=== PATIENT | male | born 1995 | race Caucasian/White ===

== ENCOUNTER 2018-05-27 18:23 | Emergency (ER) | payer BC ==
[~2018-05-27] VITALS: Wt 64.0 kg
[2018-05-27 18:27] VITALS: BP 126/60; PULSE 58; RESP 19
--- NOTE | 2018-05-27 20:07 | ERD ---
ER Documentation Chief Complaint Chief Complaint bib self, cc: left hand thumb pain s/p injury 2 days ago HPI 22-year-old [id number] male present ED complaining of left thumb pain times 3 days. Patient states that he was punching a boxing bag at the time, and injured his thumb. He came here today because he noticed the pain is not getting any better, and he noticed decreased range of motion of the left thumb. Denies any other injuries. ROS All systems reviewed and are negative except as per history of present illness. Medications Home Meds Active Scripts Ibuprofen* (Motrin*) 600 Mg Tab, 600 MG PO Q6H PRN for PAIN AND OR ELEVATED TEMP, #30 TAB Prov:KATIUSKA ESQUIVEL PROCESS ANALYST 05/27/18 Allergies Allergies: Coded Allergies: No Known Allergy (Unverified , 05/27/18) PMhx/Soc Medical and Surgical Hx: pt denies Medical Hx, pt denies Surgical Hx Hx Alcohol Use: No Hx Substance Use: No Hx Tobacco Use: No Physical Exam Vitals Vital Signs Date Temp Pulse Resp B/P (MAP) Pulse Ox O2 O2 Flow FiO2 Time Delivery Rate 05/27/18 98.2 58 19 126/60 100 18:27 (82) Physical Exam General: Well-developed, well-nourished, conscious and coherent, in no distress Skin: Warm and dry without rash, good texture and turgor Head: Normocephalic without evidence of trauma Chest: Normal AP diameter. Good expansion without retractions. Nontender. Lungs are clear to auscultate bilaterally with good tidal volume Heart: Regular rate and rhythm. No murmur, rub, or gallops heard Extremities: Slight swelling at the MCP joint of the left thumb, with decreased range of motion of the said joint, and point tenderness. No snuffbox tenderness. Peripheral pulses are intact. Sensation intact Neuro: Alert and oriented 4, GCS 15. Procedures/MDM Well-appearing 22-year-old male complaining of left thumb pain after injury 2 days ago. X-ray of the left thumb showed an avulsion fracture at the base of the phalanx. He does not have any snuffbox tenderness, low suspicion for occult scaphoid fracture. The area of injury was immobilized with a metal finger splint. Patient was noted to be comfortable and neurovascularly intact both before and after the immobilization. Patient advised to follow-up with PCP for orthopedic referral. Patient appears well, stable for discharge and outpatient management. Medical decision making shared with patient and family. Education provided to patient and family. Patient and family expressed understanding of the plan. Medications on discharge: Ibuprofen. Follow-up: Primary care provider in 2-3 days or return to ED if worse. Disclaimer: Inadvertent spelling and grammatical errors are likely due to EHR/dictation software use and do not reflect on the overall quality of patient care. Also, please note that the electronic time recorded on this note does not necessarily reflect the actual time of the patient encounter. Departure Diagnosis: Primary Impression: Finger injury Condition: Stable KATIUSKA ESQUIVEL NP May 27, 2018 20:07
[2018-05-27] MEDS ORDERED: IBUP-1542 PO (21:19)
== END 2018-05-27 21:29 | disposition home or self-care (01) ==
LOC: FTE 18:23
DX: S69.92XA Unspecified injury of left wrist, hand and finger(s), initial encounter (principal); R40.2412 Glasgow coma scale score 13-15, at arrival to emergency department; W22.8XXA Striking against or struck by other objects, initial encounter; Y92.9 Unspecified place or not applicable
CPT/HCPCS: 29125; 73140; Z7502

== ENCOUNTER 2018-10-07 20:50 | Emergency (ER) | payer BC ==
[~2018-10-07] VITALS: Ht 170.2 cm; Wt 64.0 kg
[~2018-10-07 20:50] MED LIST: IBUP-1542 PO
[2018-10-07 21:01] VITALS: BP 111/65; PULSE 89; RESP 18; Ht 170.2 cm; Wt 64.0 kg
[2018-10-07] MEDS ORDERED: FLUT9.9S NASAL (21:28)
[2018-10-07] MEDS ORDERED: MUPI22OI2 TOP (21:28)
--- NOTE | 2018-10-07 21:57 | ERD ---
ER Documentation Chief Complaint Chief Complaint C/O "BUMPS" IN NASAL AIRWAY, CAUSING PAIN AND DIFFICULTY BREATHING HPI 23-year-old male presenting with bumps and swelling to his nasal passage x2 months. Patient states is irritating when he breathes. It is not painful and he does not use medications on the area. He denies any drug use or cocaine use. Denies other medical problems. NKDA. Surgical history denies. Social history denies ROS All systems reviewed and are negative except as per history of present illness. Medications Home Meds Active Scripts Mupirocin* (Bactroban*) 2% -22 Gram Oint...g., 1 APPLIC TOP BID for 7 Days, EA Prov:SINDY ANSARI PA-C 10/07/18 Fluticasone Propionate (Flonase Allergy Relief) 9.9 Ml [place].susp, 1 SPRAY NASAL BID, #1 BOTTLE TO EACH NOSTRIL Prov:SINDY ANSARI PA-C 10/07/18 Ibuprofen* (Motrin*) 600 Mg Tab, 600 MG PO Q6H PRN for PAIN AND OR ELEVATED TEMP, #30 TAB Prov:KATIUSKA ESQUIVEL NP 05/27/18 Allergies Allergies: Coded Allergies: No Known Allergy (Unverified , 05/27/18) PMhx/Soc Medical and Surgical Hx: pt denies Medical Hx, pt denies Surgical Hx Hx Alcohol Use: No Hx Substance Use: No Hx Tobacco Use: No Smoking Status: Never smoker FmHx Family History: No diabetes, No coronary disease, No other Physical Exam Vitals Vital Signs Date Temp Pulse Resp B/P (MAP) Pulse Ox O2 O2 Flow FiO2 Time Delivery Rate 10/07/18 98.0 89 18 111/65 98 21:01 (80) Physical Exam GENERAL: The patient is well-appearing, well-nourished, in no acute distress HEENT: Atraumatic. Conjunctivae are pink. Pupils equal, round, and reactive to light. There is no scleral icterus. Tympanic membranes clear bilaterally. Oropharynx clear. Small wound noted within the left nasal passage. Mild swelling noted to the right turbinate. NECK: C-spine is soft and supple. There is no meningismus. There is no cervical lymphadenopathy. CHEST: Clear to auscultation bilaterally. There are no rales, wheezes or rhonchi. HEART: Regular rate and rhythm. No murmurs, clicks, rubs or gallops. Procedures/MDM MDM: 23-year-old male presenting with swelling to his nasal passage. She will be discharged with supportive medications and recommend follow-up with ENT. Patient is told symptoms change or worsen to return immediately to the ER. All questions answered at discharge Departure Diagnosis: Primary Impression: Polyp, nasal Condition: Stable Patient Instructions: Nasal Contusion Referrals: BRANDON ALLISON MD [facility] YOU HAVE RECEIVED A MEDICAL SCREENING EXAM AND THE RESULTS INDICATE THAT YOU DO NOT HAVE A CONDITION THAT REQUIRES URGENT TREATMENT IN THE EMERGENCY DEPARTMENT. FURTHER EVALUATION AND TREATMENT OF YOUR CONDITION CAN WAIT UNTIL YOU ARE SEEN IN YOUR DOCTORS OFFICE WITHIN THE NEXT 1-2 DAYS. IT IS YOUR RESPONSIBILITY TO MAKE AN APPOINTMENT FOR FOLOW-UP CARE. IF YOU HAVE A PRIMARY DOCTOR --you should call your primary doctor and schedule an appointment IF YOU DO NOT HAVE A PRIMARY DOCTOR YOU CAN CALL OUR PHYSICIAN REFERRAL HOTLINE AT IF YOU CAN NOT AFFORD TO SEE A PHYSICIAN YOU CAN CHOSE FROM THE FOLLOWING [facility] [address] [facility]. [facility] [address] [facility] [facility] [address] [facility] [facility] [address] [facility]. [facility] [address] [facility]. [facility]. [address] Additional Instructions: FOLLOW UP WITH YOUR PRIMARY CARE PHYSICIAN TOMORROW.Return to this facility if you are not improving as expected. SINDY ANSARI PA-C Oct 07, 2018 21:57
== END 2018-10-07 22:05 | disposition home or self-care (01) ==
LOC: FTE 20:50
DX: J33.9 Nasal polyp, unspecified (principal)
CPT/HCPCS: 99283